=== PATIENT | female | born 2000 | race Caucasian/White ===

== ENCOUNTER 2022-08-02 02:32 | Emergency (ER) | payer MEDICAID | END 2022-08-02 04:15 | disposition home or self-care (01) | LOC: JP.ED 02:32 | DX: F10.920 Alcohol use, unspecified with intoxication, uncomplicated (principal); Z88.5 Allergy status to narcotic agent; Z88.8 Allergy status to other drugs, medicaments and biological substances; Y90.5 Blood alcohol level of 100-119 mg/100 ml | CPT/HCPCS: 36415; 80307; 99284 ==